=== PATIENT | male | born 1970 | race Caucasian/White ===

== ENCOUNTER → 2018-10-04 10:33 | Outpatient (CLI) | payer OTHER, SELFPAY ==
[2018-01-02 15:03] VITALS: BMI 35.0
[2018-10-04 12:40] LABS: Microalbumin:Creatinine Ratio 334.1 mg/g CRE (<30 mg/g CRE)
[2018-10-04 12:49] LABS: AST(SGOT) 18 U/L (15-37); Alanine Aminotransfer ALT/SGPT 43 U/L (16-61); Albumin, Serum 3.5 g/dL (3.2-5.0); Alkaline Phosphatase 93 U/L (45-117); Anion Gap 10 (5-15); BUN 9 mg/dL (7-18); BUN/Creat Ratio 11.2 RATIO (10-20); Bilirubin, Direct 0.09 mg/dL (0.00-0.30); Calcium,Total 8.8 mg/dL (8.5-10.1); Chloride 100 mmol/L (98-107); Cholesterol 287 mg/dL (200); EST Glomerular Filtration Rate 110 mL/min (>60); Est Glom Filt Rate - Afr Amer 133 mL/min (>60); Globulin 3.7 g/dL (2.2-4.2); Glucose 316 mg/dL (74-106); High Density Lipoprotein 29 mg/dL; Potassium 4.2 mmol/L (3.5-5.1); Protein, Total 7.2 g/dL (6.4-8.2); Sodium Level 133 mmol/L (136-145); Triglycerides 1138 mg/dL
== END ==
PROVIDERS: Family Provider Family Medicine; PCP Family Medicine; Visit Provider Family Medicine
DX: E11.9 Type 2 diabetes mellitus without complications (principal)
CPT/HCPCS: 36415; 80048; 80061; 80076; 82043; 82570

== ENCOUNTER 2019-12-04 20:35 | Emergency (ER) | payer OTHER, SELFPAY ==
[2019-12-04 20:36] VITALS: BP 150/99; PULSE 101; RESP 16; TEMP 36.3; O2SAT 96; BMI 33.0
--- NOTE | 2019-12-04 21:45 | ED.RN ---
patient came to the nurses station and states he is feeling better and no longer wants to see seen
--- NOTE | 2019-12-04 21:47 | ED.DCSUM_ITS ---
- ER Visit Summary Date of Service: 12/04/19 Chief Complaint: Abdominal pain History of Present Illness: The patient is a 49 M [] Physical Examination: [] Test Results: [] Emergency Department Course and Treatment: Patient checked in for abdominal pain. He is brought back to room. I did sign up for the patient but before I could see him patient decided to leave. Patient was not evaluated by myself. Treatment Plan: [] Disposition: [] Impression: [] This note was generated with [employer] technology dictation software. It may contain incorrect words, spelling, and punctuation that were not noted in review of the chart prior to signing ED Disposition - Plan for ED Patient: Disposition: LEFT WITHOUT BEING SEEN Referrals: Tanmay Navarro MD [Primary Care Provider] -
== END 2019-12-04 21:47 ==
PROVIDERS: Emergency Provider Emergency Medicine; PCP Family Medicine
DX: R10.9 Unspecified abdominal pain (principal)

== ENCOUNTER 2020-06-04 20:54 | Emergency (ER) | payer OTHER, SELFPAY ==
[2020-06-04 20:55] VITALS: BP 176/108; PULSE 95; RESP 20; TEMP 36.3; O2SAT 96; BMI 31.8
--- NOTE | 2020-06-04 21:24 | ED.DCSUM_ITS ---
History of Present Illness Chief Complaint: Flank Pain Informant: Patient Onset: Yesterday Context: Gradual Onset Timing: Waxes and wanes Current Severity: Moderate Maximum Severity: Moderate Narrative: Patient present secondary to right flank pain that started yesterday. He points to the right CVA area and around the inferior rib border to the lateral abdomen. He does report an odor to his urine recently. He denies history of kidney stone. He has had prior cholecystectomy. He denies cough or shortness of breath. No fever. - Past Medical History (1) Diabetes 1.5, managed as type 2 Status: Chronic (2) Hyperlipidemia Status: Chronic (3) Hypertension Status: Chronic Past Medical History - Allergies and Home Meds Allergies/Adverse Reactions: Allergies Penicillins Allergy (Verified 12/04/19 20:38) Anaphylaxis Primary Care Physician: Tanmay Navarro MD [Primary Care Provider] - Prior records reviewed: Yes Surgical History: - - Cholecystectomy Smoking Status: Unknown if ever smoked - Family History Maternal Family History: Family History (Last Updated 01/02/18 @ 14:50 by Gilda Jean) Unknown Cancer Diabetes Heart disease Hypertension Family History: Reports: Diabetes Review of Systems General: Denies: Chills, Fever Eyes: Denies: Visual changes - bilaterally ENT: Denies: Bilateral ear pain Cardiovascular: Denies: Chest pain Respiratory: Denies: Dyspnea, Cough Gastrointestinal: Reports: Abdominal pain - Right flank pain. Denies: Nausea, Vomiting, Diarrhea Genitourinary: Denies: Dysuria Musculoskeletal: Reports: Back pain - Right flank Skin: Denies: Rash Neurological: Denies: Headache Hematologic: Denies: Easy bruising, Easy bleeding Allergy: Denies: Uticaria Physical Exam Vital Signs/Narrative: Vital Signs Temp Pulse Resp BP Pulse Ox 06/04/20 20:55 97.3 F L 95 20 H 176/108 H 96 Inital Vital Signs reviewed: Yes General: Well nourished, Well developed Head: Normocephalic ENT: Moist mucous membranes Neck: Supple Cardiovascular: Regular rate, Regular rhythm Respiratory: No distress, CTA bilaterally Abdomen: Soft, Normal bowel sounds, Tender - Tenderness of the right lateral abdominal wall.. Negative for: Guarding, Rebound tenderness Back: CVA tenderness Extremities: Nontender Skin: Normal color Neurological: Alert, Oriented x3 Psychological: Normal affect Diagnostic/Tx/Re-eval Impressions Abdomen/Pelvis CT 06/04/20 21:24 IMPRESSION: Wall thickening in the duodenum with adjacent stranding. This may be due to duodenitis or a duodenal ulcer. No bowel obstruction. Normal appendix. No urinary calculi. No hydronephrosis. Electronically Signed: Rodolfo Borrero, at 22:43 EDT Tel , Service support , 06/04/20 21:24 Abdomen/Pelvis without Cont [CT] Stat Laboratory Results 06/04/20 06/04/20 06/04/20 22:05 22:05 22:17 WBC 11.4 H RBC 5.92 Hgb 17.6 H Hct 52.1 MCV 88.0 MCH 29.7 MCHC 33.8 RDW Std Deviation 39.2 RDW Coeff of Mariano 12.1 Plt Count 191 MPV 12.4 H Immature Gran % (Auto) 1.000 H Neut % (Auto) 64.8 Lymph % (Auto) 24.3 [place] % (Auto) 7.5 Eos % (Auto) 1.9 Baso % (Auto) 0.5 Absolute Neuts (auto) 7.4 Absolute Lymphs (auto) 2.77 Nucleated RBC % 0 Sodium 136 Potassium 4.2 Chloride 104 Carbon Dioxide 27.0 Anion Gap 5 BUN 12 Creatinine 0.77 Estim Creat Clear Calc 126.31 Est GFR (MDRD) Af Amer 139 Est GFR (MDRD) Non-Af 115 BUN/Creatinine Ratio 15.6 Glucose 316 H Calcium 9.4 Urine Color Yellow Urine Clarity Clear Urine pH 7.0 Ur Specific [place] 1.010 Urine Protein 30 H Urine Glucose (UA) 1000 H Urine Ketones Negative Urine Occult Blood Negative Urine Nitrite Negative Urine Bilirubin Negative Urine Urobilinogen Normal Ur Leukocyte Esterase Negative Urine RBC 0 SEEN Urine WBC 0 SEEN Ur Squamous Epith Cells 0 SEEN Urine Bacteria 0 SEEN Urine Mucus 0 SEEN - Medical Decision Making Patient was given Toradol, morphine, Zofran, and IV fluids. On repeat jorge luation he is resting comfortably. Test results are discussed with him. He is not currently on any antacids and will be started on Prilosec. He will be given a dose of Protonix tonight. He has noted Dr. Poon and will follow up with him in the office. Patient also reports feeling a lump in his testicle. No obvious abnormalities were noted on the CT scan. I did recommend he follow-up with PCP for an ultrasound of the testicle. ED Disposition - Plan for ED Patient: Disposition: Home or Assisted Living Diagnosis: Duodenitis Instructions: Duodenitis Prescriptions: Omeprazole [Prilosec] 20 mg PO DAILY #30 cap Transmission Status: Pending to [facility] Referrals: Tanmay Navarro MD [Primary Care Provider] - As soon as possible Rashad Poon MD [STAFF PHYSICIAN] - 1-2 Weeks
--- NOTE | 2020-06-04 21:24 | CT_ITS ---
STUDY: CT ABDOMEN AND PELVIS WITHOUT CONTRAST REASON FOR EXAM: Male, 49 years old. Right flank pain RADIATION DOSAGE (If Supplied By Facility): CTDIvol = ( 16.92 ) mGy, DLP = ( 972.35 ) mGycm TECHNIQUE: Transaxial images were obtained from the dome of the diaphragm to the symphysis pubis without oral contrast, and without intravenous contrast. Sagittal and coronal images were reconstructed. Individualized dose optimization techniques were used for this CT. COMPARISON: 02/27/12 FINDINGS: Evaluation of the abdominal viscera is limited in the absence of intravenous contrast. The visualized lung bases are clear. The visualized portions of the heart and pericardium are within normal limits. The patient is status post cholecystectomy. The liver demonstrates an unremarkable unenhanced appearance. The spleen is normal in size. The pancreas demonstrates an unremarkable unenhanced appearance. The adrenal glands are within normal limits. There are no renal or ureteral stones. There is no hydronephrosis. Normal visualized stomach. There is no bowel obstruction. There is wall thickening in the duodenum with adjacent stranding. This maybe due to duodenitis or duodenal ulcer. The appendix is visualized and appears normal. The aorta is normal in caliber. There is no abdominal or pelvic free air, free fluid, fluid collection or lymphadenopathy. There are no destructive osseous lesions. CT/Abdomen/Pelvis without Cont IMPRESSION: Wall thickening in the duodenum with adjacent stranding. This may be due to duodenitis or a duodenal ulcer. No bowel obstruction. Normal appendix. No urinary calculi. No hydronephrosis. Electronically Signed: Rodolfo Borrero, at 22:43 EDT Tel , Service support ,
[2020-06-04] MEDS: Ketorolac 30 MG/ML Syringe IV (22:08)
[2020-06-04] MEDS: Morphine 4 MG/ML Syringe IV (22:08)
[2020-06-04] MEDS: Ondansetron 4 MG/2 ML Vial IV (22:08)
[2020-06-04] MEDS: 0.9% Normal Saline 1,000 ML 150 ML IV (22:11)
[2020-06-04 22:15] LABS: Absolute Lymphocyte Count 2.77 X10^3/uL (0.83-4.51); Absolute Neutrophil Count 7.4 X10^3/uL (2.0-7.7); Basophil# 0.06 X10^3/uL; Basophil% 0.5 % (0-1); Eosinophil# 0.22 X10^3/uL; Eosinophils% 1.9 % (0-5); Hematocrit 52.1 % (40-54); Hemoglobin 17.6 g/dL (13.0-16.5); Lymphocyte # 2.77 X10^3/ul (4.0); Lymphocyte % 24.3 % (19-41); Mean Corp Hgb Conc 33.8 g/dL (32-36); Mean Corpuscular Hgb 29.7 pg (27.0-32.0); Mean Platelet Vol. 12.4 fl (6.2-12.0); Monocyte# 0.85 X10^3/uL; Monocyte% 7.5 % (0-10); NRBC Flagged by Analyzer 0 % (0-5); Neutrophil # 7.38 X10^3/uL (2.7-7.7); Neutrophil % 64.8 % (47-70); Platelet Count 191 K/mm3 (150-450); RBC Distribution Width CV 12.1 % (11.6-14.6); RBC Distribution Width SD 39.2 fl (35.1-43.9); Red Blood Count 5.92 M/mm3 (4.6-6.2); White Blood Count 11.4 K/mm3 (4.4-11.0)
[2020-06-04 22:24] LABS: Bacteria 0 SEEN /hpf (None Seen); Color, Urine Yellow (Yellow); Glucose, Dipstick 1000 mg/dl (Normal); Ketone-Dipstick Negative (Negative); Leukocyte Esterase-Dipstick Negative /ul (Negative); Mucous, Urine 0 SEEN /hpf (<or=2+); Nitrite-Dipstick Negative (Negative); Occult Blood-Urine Negative /ul (Negative); Protein-Dipstick 30 mg/dl (Negative); Red Blood Cells-Urine 0 SEEN /hpf (0-5); Squamous Epithelial Cells - UA 0 SEEN /hpf (0-5); Urine Bilirubin Dipstick Negative (Negative); Urine Clarity Clear (Clear); Urine Urobilinogen Normal (Normal); White Blood Cells 0 SEEN /hpf (0-5)
[2020-06-04 22:27] LABS: Anion Gap 5 (5-15); BUN 12 mg/dL (7-18); BUN/Creat Ratio 15.6 RATIO (10-20); Calcium,Total 9.4 mg/dL (8.5-10.1); Chloride 104 mmol/L (98-107); Creatinine, Serum 0.77 mg/dL (0.70-1.30); EST Glomerular Filtration Rate 115 mL/min (>60); Est Glom Filt Rate - Afr Amer 139 mL/min (>60); Estimated Creatinine Clearance 126.31 ml/min; Glucose 316 mg/dL (74-106); Potassium 4.2 mmol/L (3.5-5.1); Sodium Level 136 mmol/L (136-145)
[2020-06-04] MEDS: Pantoprazole Sodium 40 MG Tablet PO (23:20)
[2020-06-04 23:24] VITALS: BP 161/81; RESP 18
== END 2020-06-04 23:26 | disposition home or self-care (01) ==
PROVIDERS: Emergency Provider Emergency Medicine; PCP Family Medicine
DX: K29.80 Duodenitis without bleeding (principal); E11.9 Type 2 diabetes mellitus without complications; E78.5 Hyperlipidemia, unspecified; I10 Essential (primary) hypertension; Z82.49 Family history of ischemic heart disease and other diseases of the circulatory system; Z88.0 Allergy status to penicillin; Z90.49 Acquired absence of other specified parts of digestive tract
CPT/HCPCS: 74176; 80048; 81001; 85025; 96361; 96374; 96375; 99283; J7030; A4216; J2405

== ENCOUNTER 2020-06-05 04:05 | Inpatient (IN) | payer OTHER, SELFPAY ==
[2020-06-04 20:55] VITALS: BMI 31.8
[2020-06-05] VITALS (9 sets, daily range): BP systolic 108–187; BP diastolic 88–129; PULSE 59–66; RESP 16–20; TEMP 36.4–36.7; O2SAT 95–100; BMI 33.5
--- NOTE | 2020-06-05 04:30 | ED.DCSUM_ITS ---
History of Present Illness Chief Complaint: Abd Pain Informant: Patient Narrative: Patient is a 49-year-old male with a past medical history of diabetes who presents to the emergency department for right sided flank pain. This has been present since yesterday evening. He was seen in the emergency department a few hours earlier for the same complaint. He had good relief of his symptoms here in the emergency department when he went home his symptoms returned. He currently rates the pain as a 10 out of 10. He describes as a sharp sensation. No known aggravating or relieving factors. He tried to take Excedrin since discharge and this did not help. No associated nausea/vomiting. No change in bowel habits including diarrhea, constipation or blood in stool. He states that his urine has had a foul smell to it and has been very foamy. Denies any dysuria or hematuria. He was diagnosed with a possible duodenal ulcer. Was given a dose of Protonix. He was sent home with a prescription for Pepcid. Basic lab work was obtained along with CT scan of the abdomen/pelvis. His urine did not show any evidence of infection. He has never had this pain before in the past. Past Medical History - Allergies and Home Meds Allergies/Adverse Reactions: Allergies Penicillins Allergy (Verified 06/05/20 04:08) Anaphylaxis Prior records reviewed: Yes Past Medical History: - - Diabetes mellitus Surgical History: - - Cholecystectomy Smoking Status: Current every day smoker - Family History Maternal Family History: Family History (Last Updated 01/02/18 @ 14:50 by Gilda Jean) Unknown Cancer Diabetes Heart disease Hypertension Family History: Reports: Diabetes Review of Systems General: Denies: Chills, Fever, Sweats Eyes: Denies: Visual changes - bilaterally, Diplopia ENT: Denies: Rhinorrhea, Sore throat Cardiovascular: Denies: Chest pain, Palpitations Respiratory: Denies: Dyspnea, Cough, Dyspnea on exertion Gastrointestinal: Reports: Abdominal pain. Denies: Nausea, Vomiting, Diarrhea, Melena, Hematochezia Genitourinary: Denies: Dysuria, Hematuria, Frequency Musculoskeletal: Denies: Back pain, Extremity Pain Skin: Denies: Rash, Wounds Neurological: Denies: Headache, Weakness, Numbness Physical Exam Vital Signs/Narrative: Vital Signs Temp Pulse Resp BP Pulse Ox 06/05/20 04:06 97.9 F 66 20 H 187/129 H 97 Inital Vital Signs reviewed: Yes General: Well nourished, Well developed, No Acute Distress Head: Normocephalic, Atraumatic Eyes: Perrl, EOMI ENT: Moist mucous membranes, No rhinorrhea Neck: Supple, Nontender Cardiovascular: Regular rate, Regular rhythm, No murmurs Respiratory: No distress, CTA bilaterally, Chest nontender Abdomen: Soft, Nondistended, Normal bowel sounds, Tender - Right upper quadrant/right flank. He also has tenderness in the epigastric region. No overlying skin changes., - - No pain over McBurney's point.. Negative for: Guarding, Rebound tenderness Back: Nontender, Normal Inspection Extremities: Nontender, No edema. Negative for: Edema, Calf Tenderness Skin: Normal color, No rash Neurological: Alert, Oriented x3, Cranial nerves II-XII grossly intact, Normal Strength, Normal Sensation Psychological: Normal affect, Normal Mood Diagnostic/Tx/Re-eval - Medical Decision Making Patient presents to emerge department for right-sided flank pain. He was seen earlier with a full work-up at that time. He was diagnosed with a duodenal ulcer as he had some duodenal wall thickening. We will give a GI cocktail to see if this gives him some relief. He has no peritoneal signs on physical exam. He has hypertension on vitals upon arrival. He is afebrile. Will obtain liver function panel as well as lipase. I do not feel patient needs any repeat imaging at this time as he just had a CT scan a few hours prior. Symptoms do not seem worse but they just returned back to what they were previously. Lipase was elevated over 4000. Upon review his medical records he has had very elevated triglycerides in the past. He denies alcohol use again. CT scan from prior did not show any evidence of obstructing stone. Will bring him into the hospital for further evaluation and management. He is started on IV fluids and given a dose of morphine. This was all made apparent to the patient. He understands and is agreeable with this plan. ED Disposition - Plan for ED Patient: Disposition: Acute Care Hospital [facility] Diagnosis: Pancreatitis, Hyperglycemia, Abdominal pain
[2020-06-05] MEDS: Mag Hydrox/Al Hydrox/Simeth 30 ML UDC PO (04:43)
[2020-06-05 04:59] LABS: ALB/GLOB Ratio 0.9 RATIO (0.9-2.4); AST(SGOT) 11 U/L (15-37); Alanine Aminotransfer ALT/SGPT 25 U/L (16-61); Albumin, Serum 3.1 g/dL (3.2-5.0); Alkaline Phosphatase 84 U/L (45-117); Anion Gap 6 (5-15); BUN 14 mg/dL (7-18); BUN/Creat Ratio 14.8 RATIO (10-20); Calcium,Total 8.8 mg/dL (8.5-10.1); Chloride 100 mmol/L (98-107); Creatinine, Serum 0.95 mg/dL (0.70-1.30); EST Glomerular Filtration Rate 90 mL/min (>60); Est Glom Filt Rate - Afr Amer 109 mL/min (>60); Estimated Creatinine Clearance 99.25 ml/min; Globulin 3.5 g/dL (2.2-4.2); Glucose 414 mg/dL (74-106); Lipase 4447 U/L (73-393); Potassium 4.3 mmol/L (3.5-5.1); Protein, Total 6.6 g/dL (6.4-8.2); Sodium Level 135 mmol/L (136-145)
--- NOTE | 2020-06-05 05:04 | PCM.HP.STD ---
Problem List (1) Pancreatitis Status: Acute (2) Hyperglycemia Status: Acute (3) Abdominal pain Status: Acute (4) Hyperlipidemia Status: Chronic (5) Hypertension Status: Chronic (6) Diabetes 1.5, managed as type 2 Status: Chronic History of Present Illness Date of Admission: 06/05/20 Chief Complaint: Abdominal pain The patient is a 49 year old M with a significant history of hypertension; diabetes mellitus who presents emergency department with excruciating right flank pain. In the last 24 hours patient came to emergency department 2 times. This is his second visits. On the second visit patient's CT scan showed duodenal inflammation consistent with either a pancreatitis or peptic ulcer disease. Patient was subsequent discharged on Prilosec. When patient went home because her pain returned I came back to emergency department. His pain worsens with movement. He denies any ameliorating factors to the pain. However, pain medication that he received at the emergency department helped with his pain. His pain is nonradiating. He describes his pain as dull pressure. He denies any nausea or vomiting. His lipase done at the second visit (this visit) showed an amount of 4, 447. Past Medical History Past Medical History (Chronic Problems): Chronic Problems (Last Reviewed 06/05/20 @ 06:[address] Kyree Mclean MD) Hyperlipidemia (Chronic) Hypertension (Chronic) Diabetes 1.5, managed as type 2 (Chronic) Medical History: Medical History (Last Reviewed 06/05/20 @ 06:[address] Kyree Mclean MD) Bone fracture T14.8XXA Diabetes type 2, uncontrolled E11.65 Dx : 2014 Last exacerbation : DKA : never Hypoglycemic episode : never ER visit : never HTN (hypertension) I10 Allergies Penicillins Allergy (Verified 06/05/20 04:08) Anaphylaxis Home Medications: Ambulatory Orders Medication Instructions Recorded Insulin Detemir [Levemir FlexPen] 48 units SC QHS 01/29/16 metFORMIN HCl [Glucophage] 1,000 mg PO DAILY 01/29/16 Lisinopril [Zestril] 20 mg PO DAILY 06/04/20 Omeprazole [Prilosec] 20 mg PO DAILY #30 cap 06/04/20 Surgical History: Surgical History (Last Reviewed 06/05/20 @ 06:[address] Kyree Mclean MD) H/O foot surgery Z98.890 H/O shoulder surgery Z98.890 Hx of cholecystectomy Z98.890, Z90.49 Surgical History: herniorrhaphy, - - Cholecystectomy Psychiatric History: No pertinent psych hx Smoking Status: Current every day smoker Tobacco Use: Cigarettes - *Family History Maternal Family History: Family History (Last Reviewed 06/05/20 @ 06:[address] Kyree Mclean MD) Unknown Cancer Diabetes Heart disease Hypertension History Items: Diabetes Review of Systems Constitutional: Denies: Chills, Fever, Weight Change HEENT: Denies: Head Aches, Sinus Congestion, Sinus Drainage Cardiovascular: Denies: Chest Pain, Palpitations Respiratory: Denies: Cough, Shortness of breath at rest, Sputum production Gastrointestinal: Reports: Abdominal Pain. Denies: Nausea, Vomiting Genitourinary: Denies: Dysuria Musculoskeletal: Denies: Joint Pain, Joint Tenderness Skin: Denies: Rash, Wounds Neurological: Denies: Numbness, Tingling, Focal weakness Psychiatric: Denies: Anxiety, Depression, Homicidal Ideations, Suicidal Ideations Hematologic/ Lymphatic: Denies: Easy Bruising, Easy Bleeding VTE Information - Inpt Only VTE Present on Admission: No VTE Mechan Device Prophylaxis: None VTE Pharm Prophylaxis ordered?: Yes Patient Problems: Active and Suspected Problems (Last Reviewed 06/05/20 @ 06:[address] Kyree Mclean MD) Pancreatitis (Acute) Hyperglycemia (Acute) Abdominal pain (Acute) - Physical Exam Vitals/I&O's: Vital Signs Temp Pulse Resp BP Pulse Ox 97.9 F 66 20 H 187/129 H 97 06/05/20 04:06 06/05/20 04:06 06/05/20 04:06 06/05/20 04:06 06/05/20 04:06 Oxygen Delivery Method Room Air Weight: 106.1 kg Body Mass Index (BMI) 33.5 Finger Stick Blood Glucose 212 General: Alert, Oriented x3, Cooperative HEENT: Atraumatic, PERRLA, EOMI, Normocephalic Neck: Supple, No JVD, Negative Carotid Bruits Lungs: Clear to auscultation, Normal air movement Cardiovascular: Regular rate, Normal S1, Normal S2, No murmurs Abdomen: Bowel Sounds Present, Soft, Non Tender, - - Right testicular mass, tender. Extremities: No edema, Capillary Refill Less than 3 Seconds Skin: No rashes, No breakdown Musculoskeletal: No Tenderness to Palpation of Joints or Extremities Neurological: Cranial nerves II-XII grossly intact Psych/Mental Status: Normal Affect, Appropriate Laboratory Results 06/05/20 04:35: Sodium 135 L, Potassium 4.3, Chloride 100, Carbon Dioxide 29.0, Anion Gap 6, BUN 14, Creatinine 0.95, Estim Creat Clear Calc 99.25, Est GFR (MDRD) Af Amer 109, Est GFR (MDRD) Non-Af 90, BUN/Creatinine Ratio 14.8, Glucose 414 H, Calcium 8.8, Total Bilirubin 0.20, AST 11 L, ALT 25, Alkaline Phosphatase 84, Total Protein 6.6, Albumin 3.1 L, Globulin 3.5, Albumin/Globulin Ratio 0.9, Lipase 4447 H Current Medications Sodium Chloride () 1,000 mls @ 999 mls/hr IV .Q1H1M ONE Stop: 06/05/20 06:02 Assessment/Plan All Active Problems (Last Reviewed 06/05/20 @ 06:[address] Kyree Mclean MD) Pancreatitis (Acute) Hyperglycemia (Acute) Abdominal pain (Acute) The patient is a 49 year old M with a significant history of hypertension; diabetes mellitus who presents to the emergency department with excruciating right flank pain; moderately tender right flank; very tender epigastric area and with CT of abdomen and pelvis finding of maral inflammation.. Acute pancreatitis Received normal saline bolus at emergency department. Will start patient on lactated Ringer's infusion. Patient denies nausea or vomiting so will start patient on a diet. Calorie controlled diet ordered. Etiology of pancreatitis is unclear as patient has his gallbladder removed. And he hardly drinks. About 4 days prior to his representation he had about 3-4 bottles of beer. I do not anticipate that his last drink contributed to his pancreatitis. His calcium is not elevated. His triglycerides is elevated and that could be contributing to his pancreatitis. Diabetes mellitus Blood glucose on presentation was severely elevated. Home basal insulin continued Accu-Chek q. ACH with correction scale insulin ordered. Hold home metformin in the hospital setting. Hypertriglyceridemia Start patient on fenofibrate. Titrate fenofibrate as necessary. Duodenitis/duodenal ulcer Although patient symptoms could only be from pancreatitis he has severe epigastric tenderness and moderate right flank tenderness. His right flank tenderness could be referred from his pancreatitis. However with a CT scan of abdomen and pelvis findings of duodenal inflammation will order Protonix. Of note on patient first emergency department visit Prilosec outpatient was prescribed. Testicular mass Patient reports of a soreness and a mass in his right testicles that has been present for a couple of months.. We will get ultrasound of testicles. Hypertension On presentation blood pressure was not within goal Lisinopril continued Trend blood pressure and adjust blood pressure medications. DVT prophylaxis Subcutaneous Lovenox. Inpatient E&M: 79921 Init Hosp L3
[2020-06-05] MEDS: Morphine 4 MG/ML Syringe IV (05:22)
[2020-06-05] MEDS: 0.9% Normal Saline 1,000 ML 999 ML IV (05:24)
[2020-06-05 05:28] LABS: Cholesterol 136 mg/dL (200); High Density Lipoprotein 24 mg/dL; Triglycerides 544 mg/dL
--- NOTE | 2020-06-05 06:21 | US_ITS ---
STUDY: SCROTUM ULTRASOUND REASON FOR EXAM: Male, 49 years old. Right testicular mass TECHNIQUE: Ultrasound evaluation of the scrotum was performed with color Doppler and static vang-scale imaging. COMPARISON: None. FINDINGS: RIGHT TESTICLE INTRATESTICULAR: There is a normal size of the right testicle. The right testicle measures 5.3 x 3.1 x 2.9 cm. There is a homogenous echotexture. There is normal arterial and normal venous vascularity. There is no demonstrated right testicular mass or cyst. EXTRATESTICULAR: The epididymis is normal in size. The epididymis head measures 1.6 x 1.2 cm. There is normal vascularity of the epididymis. There is a 2.9 x 0.9 cm right epididymal cyst. There is a small hydrocele. There is no demonstrated varicocele. There is no demonstrated extratesticular mass or cyst. LEFT TESTICLE INTRATESTICULAR: There is a normal size of the left testicle. The left testicle measures 4.1 x 3.6 x 2.7 cm. There is a homogenous echotexture. There is normal arterial and normal venous vascularity. There is no demonstrated left testicular mass or cyst. EXTRATESTICULAR: The epididymis is normal in size. The epididymis head measures 1.3 x 0.9 cm. There is normal vascularity of the epididymis. There is no demonstrated epididymal cystic structure. There is no demonstrated hydrocele. There is no demonstrated varicocele. There is no demonstrated extratesticular mass or cyst. US/Testicular with Arterial Flow IMPRESSION: Normal bilateral testicles with normal DOPPLER flow. 2.9 x 0.9 cm right epididymal cyst which likely corresponds to the patient''s palpable mass. Electronically Signed: Rodolfo Borrero, at 14:03 EDT Tel , Service support ,
[2020-06-05] MEDS: Acetaminophen 325 MG Tablet 650 MG PO (06:45)
[2020-06-05] MEDS: hydrALAZINE 20 MG/ML Vial 10 MG IV (06:46)
[2020-06-05] MEDS: 0.9% Saline Lock 10 ML Syringe IV (06:46)
[2020-06-05] MEDS: Insulin Lispro 100 UNIT/ML INSULN.PEN SC ×4 (06:56→21:11)
[2020-06-05] MEDS: Lactated Ringers 1,000 ML 250 ML IV ×4 (06:57→21:02)
[2020-06-05 07:06] LABS: Bedside Glucose 327 mg/dL (70-110)
[2020-06-05] MEDS: Morphine 2 MG/ML Syringe IV ×2 (08:42→12:46)
[2020-06-05] MEDS: Enoxaparin 40 MG/0.4 ML Syringe SC (08:47)
--- NOTE | 2020-06-05 11:15 | CASEMGMT ---
KARLOS YANEZ Face to Face with patient for initial transition planning/care coordination assessment. KARLOS YANEZ introduced self and role at [facility]. Patient lying in bed, alert and oriented. Patient willing to participate in assessment and is able to answer all questions appropriately. Care providers, pharmacy, and demographics verified. Patient wishes to discharge home, denies need for home health at this time. Patient states he has no further needs or concerns at this time. CM to follow for discharge planning needs that may arise. PCP: Ramon Specialists: none, would like to get established with an records section supervisor, educated patient on Dr. Freeman Preferred Pharmacy: [facility] Insurance: [employer] Prescription Benefit: yes Living Will/HPOA: none LNOK: daughter Living Arrangements: Patient lives alone in a 2 story home, independent and able to ambulate stairs. Transportation: self/daughter DME/HHC: Patient states he has glucometer and testing supplies but does not test his sugar regularly. KARLOS YANEZ encouraged patient to check and track his blood sugars. Patient smokes 1 PPD Disposition Plan: Patient to discharge home with family support and follow-up plans in place. Lesly LEWIS, RN, CM
--- NOTE | 2020-06-05 11:16 | PCM.PN.HOSP ---
Patient Problems: Active and Suspected Problems (Last Reviewed 06/05/20 @ 06:[address] Kyree Mclean MD) Pancreatitis (Acute) Hyperglycemia (Acute) Abdominal pain (Acute) Reason for Visit: pancreatitis Subjective: Still with abdominal pain, overall better. Vitals/I&O's: Vital Signs Temp Pulse Resp BP Pulse Ox 36.4 C L 62 18 157/90 H 100 06/05/20 08:37 06/05/20 08:37 06/05/20 08:37 06/05/20 08:37 06/05/20 08:37 Oxygen Delivery Method Room Air Weight: 105.9 kg Body Mass Index (BMI) 33.5 Finger Stick Blood Glucose 212 Intake and Output for Last 24 Hours 06/03/20 06/04/20 06/05/20 23:59 23:59 23:59 Intake Total 1000 / 1000 Balance 1000 / 1000 General: Alert, No apparent distress HEENT: Atraumatic, Normocephalic Oral: Moist Mucosa, No Gingival or Mucosal Lesions/ Ulcerations Neck: No Nodes, Thyroid Normal Size and Texture Lungs: Clear to auscultation, Normal air movement, No rhonchi, No wheeze, No rales Cardiovascular: Regular rate, Regular Rhythm, Normal S1, Normal S2, No murmurs Abdomen: Bowel Sounds Present, Soft, Non-Distended, Tender - in epigastrum Extremities: No edema, No Calf Tenderness Skin: No rashes, No breakdown Musculoskeletal: No Tenderness to Palpation of Joints or Extremities, No Muscle Wasting Psych/Mental Status: Normal Affect, Appropriate Laboratory Results 06/05/20 04:35: Sodium 135 L, Potassium 4.3, Chloride 100, Carbon Dioxide 29.0, Anion Gap 6, BUN 14, Creatinine 0.95, Estim Creat Clear Calc 99.25, Est GFR (MDRD) Af Amer 109, Est GFR (MDRD) Non-Af 90, BUN/Creatinine Ratio 14.8, Glucose 414 H, Calcium 8.8, Total Bilirubin 0.20, AST 11 L, ALT 25, Alkaline Phosphatase 84, Total Protein 6.6, Albumin 3.1 L, Globulin 3.5, Albumin/Globulin Ratio 0.9, Lipase 4447 H 06/05/20 04:35: Triglycerides 544 H, Cholesterol 136, LDL Cholesterol TNP, VLDL Cholesterol TNP, HDL Cholesterol 24 L 06/05/20 06:48: POC Glucose 327 H Current Medications Acetaminophen (Tylenol) 650 mg PO Q6H PRN PRN PRN Reason: Pain Score 1-10/Temp > 100.7 F Last Admin: 06/05/20 06:45 Dose: 650 mg Documented by: Dextrose (D50w Syringe) 0 gm IV X1 PRN; Protocol PRN Reason: Hypoglycemia Enoxaparin Sodium (Lovenox) 40 mg SC DAILY [facility] Last Admin: 06/05/20 08:47 Dose: 40 mg Documented by: Fenofibrate (Tricor) 48 mg PO DAILY [facility] Last Admin: 06/05/20 08:40 Dose: Not Given Documented by: Glucagon () 1 mg IM .X1 PRN PRN Reason: Hypoglycemia Hydralazine HCl (Apresoline Iv) 10 mg IV Q4H PRN PRN PRN Reason: SBP > 160 Last Admin: 06/05/20 06:46 Dose: 10 mg Documented by: Lactated Ringer's () 1,000 mls @ 250 mls/hr IV .Q4H [facility] Last Admin: 06/05/20 06:57 Dose: 250 mls/hr Documented by: Sodium Chloride () 250 mls @ 15 mls/hr IV .[id number] PRN PRN Reason: Saline Flush Insulin Glargine (Lantus (Bkc)) 34 units SC QHS [facility] Insulin Human Lispro (Humalog Kwikpen (Bkc)) 0 unit SC ACHS [facility]; Protocol Last Admin: 06/05/20 06:56 Dose: 8 units Documented by: Lisinopril (Zestril) 20 mg PO DAILY [facility] Last Admin: 06/05/20 08:40 Dose: Not Given Documented by: Melatonin (Melatonin) 3 mg PO QHS PRN PRN PRN Reason: INSOMNIA Morphine Sulfate () 2 mg IV Q3H PRN PRN PRN Reason: Pain Score 6-10/10 Last Admin: 06/05/20 08:42 Dose: 2 mg Documented by: Ondansetron HCl (Zofran) 4 mg IV Q8H PRN PRN PRN Reason: NAUSEA/VOMITING Pantoprazole Sodium (Protonix) 40 mg PO DAILY [facility] Last Admin: 06/05/20 08:40 Dose: Not Given Documented by: Senna/Docusate Sodium (Senokot-S, Romana-Colace) 2 tablet PO BID PRN PRN PRN Reason: Constipation Sodium Chloride () 10 - 40 ml IV UD PRN PRN Reason: SALINE FLUSH Last Admin: 06/05/20 06:46 Dose: 10 ml Documented by: STROKE Vital Signs/Narrative: Vital Signs Temp Pulse Resp BP Pulse Ox 06/05/20 08:37 36.4 C L 62 18 157/90 H 100 Medical Necessity - Tobacco Use Smoking Status: Current every day smoker Tobacco Use: Cigarettes Assessment/Plan All Active Problems (Last Reviewed 06/05/20 @ 06:[address] Kyree Mclean MD) Pancreatitis (Acute) Hyperglycemia (Acute) Abdominal pain (Acute) 1. acute pancreatitis ongoing etiology unclear at this time. status cholecystectomy. rare alcohol consumption (though did have a few beers several days prior). TGs elevated, but I am not sure if high enough to cause pancreatitis. Initiated on fenofibrate. continue supportive mgmt with IVF, pain control, clear liquid diet 2. duodenitis unclear if due to proximity of pancreatis on PPI 3. DM2 uncontrolled continue basal insulin and SSI check A1c 4. Testicular mass US ordered given age, unlikely to be primary CA 5. VTE prophylaxis: LMWH Procedures: Other Procedure - See Report - Non billable rounding as patient admitted after midnight.
--- NOTE | 2020-06-05 12:24 | NURSING ---
per electrical maintenance supervisor, pt visitor is changing from daughter, Chance, to mother Cristine. they understand that they will not be able to change again and that mother will be the only visitor allowed. updated primary RN.
[2020-06-05 12:50] LABS: Bedside Glucose 250 mg/dL (70-110)
--- NOTE | 2020-06-05 14:02 | ED.RN ---
Spoke with daughter on the phone. She was upset and stated that her father needed her grandmother to be with him instead of her. She was listed as his contact and visitor. Both daughter and mother were crying. Daughter was advised that we would allow the change but once they did the change it was done. She would not be allowed to switch again during this visit. Daughter agreed. They also spoke with Major Mariee about this issue.
[2020-06-05 17:00] LABS: Bedside Glucose 217 mg/dL (70-110)
[2020-06-05 22:50] LABS: Bedside Glucose 180 mg/dL (70-110)
[2020-06-06] MEDS: Lactated Ringers 1,000 ML 250 ML IV ×3 (00:40→08:32)
[2020-06-06 03:30] VITALS: BP 155/84; PULSE 55; RESP 16; TEMP 36.5; O2SAT 98
[2020-06-06 05:25] LABS: Absolute Lymphocyte Count 2.95 X10^3/uL (0.83-4.51); Absolute Neutrophil Count 4.8 X10^3/uL (2.0-7.7); Basophil# 0.04 X10^3/uL; Basophil% 0.5 % (0-1); Eosinophil# 0.18 X10^3/uL; Eosinophils% 2.1 % (0-5); Hematocrit 46.8 % (40-54); Hemoglobin 15.6 g/dL (13.0-16.5); Lymphocyte # 2.95 X10^3/ul (4.0); Lymphocyte % 34.1 % (19-41); Mean Corp Hgb Conc 33.3 g/dL (32-36); Mean Corpuscular Hgb 29.7 pg (27.0-32.0); Mean Corpuscular Volume 89.1 fL (80-94); Mean Platelet Vol. 12.4 fl (6.2-12.0); Monocyte# 0.59 X10^3/uL; Monocyte% 6.8 % (0-10); NRBC Flagged by Analyzer 0 % (0-5); Neutrophil # 4.83 X10^3/uL (2.7-7.7); Neutrophil % 55.7 % (47-70); Platelet Count 175 K/mm3 (150-450); RBC Distribution Width CV 12.1 % (11.6-14.6); RBC Distribution Width SD 39.8 fl (35.1-43.9); Red Blood Count 5.25 M/mm3 (4.6-6.2); White Blood Count 8.7 K/mm3 (4.4-11.0)
[2020-06-06 05:45] LABS: Anion Gap 3 (5-15); BUN 6 mg/dL (7-18); BUN/Creat Ratio 13.3 RATIO (10-20); Calcium,Total 8.2 mg/dL (8.5-10.1); Chloride 112 mmol/L (98-107); Creatinine, Serum 0.45 mg/dL (0.70-1.30); EST Glomerular Filtration Rate 213 mL/min (>60); Est Glom Filt Rate - Afr Amer 258 mL/min (>60); Estimated Creatinine Clearance 209.54 ml/min; Glucose 146 mg/dL (74-106); Lipase 652 U/L (73-393); Potassium 3.7 mmol/L (3.5-5.1); Sodium Level 140 mmol/L (136-145)
[2020-06-06] MEDS: Insulin Lispro 100 UNIT/ML INSULN.PEN SC ×2 (06:57→11:54)
[2020-06-06 07:01] LABS: Bedside Glucose 157 mg/dL (70-110)
[2020-06-06 07:42] VITALS: O2SAT 97
[2020-06-06 08:11] LABS: Hemoglobin A1c 11.5 % (3.8-5.6)
[2020-06-06 08:38] VITALS: BP 154/110; PULSE 60; RESP 18; TEMP 36.6; O2SAT 99
--- NOTE | 2020-06-06 08:52 | PN_ITS ---
Patient Problems: Active and Suspected Problems (Last Reviewed 06/05/20 @ 06:[address] Kyree Mclean MD) Pancreatitis (Acute) Hyperglycemia (Acute) Abdominal pain (Acute) Reason for Visit: pancreatitis Subjective: feeling better. no abdominal pain. tolerating clears. Vitals/I&O's: Vital Signs Temp Pulse Resp BP Pulse Ox 36.6 C 60 18 154/110 H 99 06/06/20 08:38 06/06/20 08:38 06/06/20 08:38 06/06/20 08:38 06/06/20 08:38 Oxygen Delivery Method Room Air Weight: 105.9 kg Body Mass Index (BMI) 33.5 Finger Stick Blood Glucose 212 Intake and Output for Last 24 Hours 06/04/20 06/05/20 06/06/20 23:59 23:59 23:59 Intake Total 4000 / 5100 4470.83 / 4470.83 Balance 4000 / 5100 4470.83 / 4470.83 General: Alert, No apparent distress HEENT: Atraumatic, Normocephalic Neck: No Nodes, Thyroid Normal Size and Texture Lungs: Clear to auscultation, Normal air movement, No rhonchi, No wheeze, No rales Cardiovascular: Regular rate, Regular Rhythm, Normal S1, Normal S2, No murmurs Abdomen: Bowel Sounds Present, Soft, Non Tender, Non-Distended, No Hepato- splenomegaly Extremities: No edema, No Calf Tenderness Laboratory Results 06/05/20 12:36: POC Glucose 250 H 06/05/20 16:54: POC Glucose 217 H 06/05/20 21:07: POC Glucose 180 H 06/06/20 05:12: Sodium 140, Potassium 3.7, Chloride 112 H, Carbon Dioxide 25.0, Anion Gap 3 L, BUN 6 L, Creatinine 0.45 L, Estim Creat Clear Calc 209.54, Est GFR (MDRD) Af Amer 258, Est GFR (MDRD) Non-Af 213, BUN/Creatinine Ratio 13.3, Glucose 146 H, Calcium 8.2 L, Lipase 652 H 06/06/20 05:12: WBC 8.7, RBC 5.25, Hgb 15.6, Hct 46.8, MCV 89.1, MCH 29.7, MCHC 33.3, RDW Std Deviation 39.8, RDW Coeff of Mariano 12.1, Plt Count 175, MPV 12.4 H, Immature Gran % (Auto) 0.800, Neut % (Auto) 55.7, Lymph % (Auto) 34.1, [place] % (Auto) 6.8, Eos % (Auto) 2.1, Baso % (Auto) 0.5, Absolute Neuts (auto) 4.8, Ab solute Lymphs (auto) 2.95, Nucleated RBC % 0 06/06/20 05:12: Hemoglobin A1c 11.5 H 06/06/20 06:55: POC Glucose 157 H Current Medications Acetaminophen (Tylenol) 650 mg PO Q6H PRN PRN PRN Reason: Pain Score 1-10/Temp > 100.7 F Last Admin: 06/05/20 06:45 Dose: 650 mg Documented by: Dextrose (D50w Syringe) 0 gm IV X1 PRN; Protocol PRN Reason: Hypoglycemia Enoxaparin Sodium (Lovenox) 40 mg SC DAILY [facility] Last Admin: 06/05/20 08:47 Dose: 40 mg Documented by: Fenofibrate (Tricor) 48 mg PO DAILY [facility] Last Admin: 06/05/20 08:40 Dose: Not Given Documented by: Glucagon () 1 mg IM .X1 PRN PRN Reason: Hypoglycemia Hydralazine HCl (Apresoline Iv) 10 mg IV Q4H PRN PRN PRN Reason: SBP > 160 Last Admin: 06/05/20 06:46 Dose: 10 mg Documented by: Lactated Ringer's () 1,000 mls @ 250 mls/hr IV .Q4H [facility] Last Admin: 06/06/20 08:32 Dose: 250 mls/hr Documented by: Sodium Chloride () 250 mls @ 15 mls/hr IV .[id number] PRN PRN Reason: Saline Flush Insulin Glargine (Lantus (Bkc)) 34 units SC QHS [facility] Last Admin: 06/05/20 23:33 Dose: Not Given Documented by: Insulin Human Lispro (Humalog Kwikpen (Bkc)) 0 unit SC ACHS [facility]; Protocol Last Admin: 06/06/20 06:57 Dose: 2 units Documented by: Lisinopril (Zestril) 20 mg PO DAILY [facility] Last Admin: 06/05/20 08:40 Dose: Not Given Documented by: Melatonin (Melatonin) 3 mg PO QHS PRN PRN PRN Reason: INSOMNIA Morphine Sulfate () 2 mg IV Q3H PRN PRN PRN Reason: Pain Score 6-10/10 Last Admin: 06/05/20 12:46 Dose: 2 mg Documented by: Ondansetron HCl (Zofran) 4 mg IV Q8H PRN PRN PRN Reason: NAUSEA/VOMITING Pantoprazole Sodium (Protonix) 40 mg PO DAILY [facility] Last Admin: 06/05/20 08:40 Dose: Not Given Documented by: Senna/Docusate Sodium (Senokot-S, Romana-Colace) 2 tablet PO BID PRN PRN PRN Reason: Constipation Sodium Chloride () 10 - 40 ml IV UD PRN PRN Reason: SALINE FLUSH Last Admin: 06/05/20 06:46 Dose: 10 ml Documented by: STROKE Vital Signs/Narrative: Vital Signs Temp Pulse Resp BP Pulse Ox 06/06/20 08:38 36.6 C 60 18 154/110 H 99 06/06/20 07:42 97 Medical Necessity - Tobacco Use Smoking Status: Current every day smoker Tobacco Use: Cigarettes Assessment/Plan All Active Problems (Last Reviewed 06/05/20 @ 06:[address] Kyree Mclean MD) Pancreatitis (Acute) Hyperglycemia (Acute) Abdominal pain (Acute) 1. acute pancreatitis * improved clinically. Lipase down to 652 * etiology unclear at this time. status cholecystectomy. rare alcohol consumption (though did have a few beers several days prior). * TGs elevated, but I am not sure if high enough to cause pancreatitis. Initiated on fenofibrate. * continue supportive mgmt with IVF, pain control, clear liquid diet 2. duodenitis * unclear if due to proximity of pancreatis * on PPI 3. DM2 uncontrolled * continue basal insulin and SSI * A1c 11.5 * fair control at this time. 4. Testicular mass * epidydmal cyst * follow up with PRN 5. VTE prophylaxis: LMWH Inpatient E&M: 49147 Subs Hosp L2
[2020-06-06] MEDS: Enoxaparin 40 MG/0.4 ML Syringe SC (10:07)
[2020-06-06] MEDS: Fenofibrate 48 MG Tablet PO (10:08)
[2020-06-06] MEDS: Pantoprazole Sodium 40 MG Tablet PO (10:08)
[2020-06-06] MEDS: Lisinopril 20 MG Tablet PO (10:08)
[2020-06-06 12:15] LABS: Bedside Glucose 232 mg/dL (70-110)
--- NOTE | 2020-06-06 12:29 | DCINST_ITS ---
- Discharge Diagnoses Current Active Problems: Current Active and Chronic Problems (Last Reviewed 06/05/20 @ 06:[address] Kyree Mclean MD) Pancreatitis (Acute) Hyperglycemia (Acute) Abdominal pain (Acute) You will use the following diet at home:: Calorie/Carbohydrate Controlled (specify 1200, 1400, etc) - 1800 kcal/day, Other - no alcohol Call your doctor if you observe: - - worsening abdominal pain Allergies/Adverse Reactions: Allergies Penicillins Allergy (Verified 06/05/20 04:08) Anaphylaxis Medications to take at Discharge Insulin Detemir [Levemir FlexPen] 48 units SC QHS 01/29/16 metFORMIN HCl [Glucophage] 1,000 mg PO DAILY 01/29/16 Lisinopril [Zestril] 20 mg PO DAILY 06/04/20 Omeprazole [Prilosec] 20 mg PO DAILY #30 cap 06/04/20 Atorvastatin Calcium 20 mg PO DAILY 06/05/20 Fenofibrate [Tricor] 48 mg PO DAILY #30 tab 06/06/20 The following prescriptions were given: Fenofibrate [Tricor] 48 mg PO DAILY #30 tab Transmission Status: Pending to [facility] #30 Primary Care Physician: Tanmay Navarro MD [Primary Care Provider] - Within 2 Weeks Test Results: Test results from this visit will be discussed in further detail at your follow- up appointment, if applicable. Proposed Discharge Date: 06/06/20
--- NOTE | 2020-06-06 12:30 | PCM.DC.SUM ---
Discharge Date and Diagnosis - Problem List Patient Problems: Active and Suspected Problems (Last Reviewed 06/05/20 @ 06:[address] Kyree Mclean MD) Pancreatitis (Acute) Hyperglycemia (Acute) Abdominal pain (Acute) Date of Admission: 06/05/20 Date of Discharge: 06/06/20 - Primary Discharge Diagnosis Acute Problems: Active Problems (Last Reviewed 06/05/20 @ 06:[address] Kyree Mclean MD) Pancreatitis (Acute) Hyperglycemia (Acute) Abdominal pain (Acute) - Secondary Discharge Diagnosis Chronic Problems: Chronic Problems (Last Reviewed 06/05/20 @ 06:[address] Kyree Mclean MD) Hyperlipidemia (Chronic) Hypertension (Chronic) Diabetes 1.5, managed as type 2 (Chronic) Hospital Course and Treatment Imaging Results: Clinical Impression(s) from Imaging Studies Testicular Ultrasound 06/05/20 06:21 IMPRESSION: Normal bilateral testicles with normal DOPPLER flow. 2.9 x 0.9 cm right epididymal cyst which likely corresponds to the patient''s palpable mass. Electronically Signed: Rodolfo Borrero, at 14:03 EDT Tel , Service support , Operations: None Procedures: None Summary of Care Provided: The patient is a 49 year old M presents with 1 day of abdominal pain. Patient was found to have acute pancreatitis. CAT scan showed duodenal inflammation either from the adjacent pancreatitis or with PUD. Patient had been seen previously for the same complaint and sent home with [facility] going to return the same day. Patient was subsequently admitted and started on IV fluids and made n.p.o. Eventually patient's pain was improving and his diet was advanced to clears. Today patient was feeling much better and his lipase down went down from 4447 down to 652. Patient was advanced to a bland diet which he tolerated well. Patient will be discharged home. In regards to etiology of his pancreatitis, patient has had his gallbladder taken out nor was any evidence of any gallstones in his biliary ducts. Patient states that he had few beers few days prior seems unlikely though it is possible that could be a culprit regards to his abdominal pain but also his triglycerides were elevated at 544. This itself seems unlikely to be causing his pancreatitis but advised the patient to start fenofibrate. Patient will continue with that and to follow-up with his primary care doctor in the coming weeks to see how he is responding. Patient may need eventual referral to a mobile therapist for further evaluation as outpatient. [] Patient Problems: Active and Suspected Problems (Last Reviewed 06/05/20 @ 06:[address] Kyree Mclean MD) Pancreatitis (Acute) Hyperglycemia (Acute) Abdominal pain (Acute) - Physical Exam Vitals/I&O's: Vital Signs Temp Pulse Resp BP Pulse Ox 36.6 C 60 18 154/110 H 99 06/06/20 08:38 06/06/20 08:38 06/06/20 08:38 06/06/20 08:38 06/06/20 08:38 Oxygen Delivery Method Room Air Weight: 105.9 kg Body Mass Index (BMI) 33.5 Finger Stick Blood Glucose 212 Intake and Output for Last 24 Hours 06/04/20 06/05/20 06/06/20 23:59 23:59 23:59 Intake Total 4000 / 5100 4950.83 / 4950.83 Balance 4000 / 5100 4950.83 / 4950.83 Laboratory Results 06/05/20 12:36: POC Glucose 250 H 06/05/20 16:54: POC Glucose 217 H 06/05/20 21:07: POC Glucose 180 H 06/06/20 05:12: Sodium 140, Potassium 3.7, Chloride 112 H, Carbon Dioxide 25.0, Anion Gap 3 L, BUN 6 L, Creatinine 0.45 L, Estim Creat Clear Calc 209.54, Est GFR (MDRD) Af Amer 258, Est GFR (MDRD) Non-Af 213, BUN/Creatinine Ratio 13.3, Glucose 146 H, Calcium 8.2 L, Lipase 652 H 06/06/20 05:12: WBC 8.7, RBC 5.25, Hgb 15.6, Hct 46.8, MCV 89.1, MCH 29.7, MCHC 33.3, RDW Std Deviation 39.8, RDW Coeff of Mariano 12.1, Plt Count 175, MPV 12.4 H, Immature Gran % (Auto) 0.800, Neut % (Auto) 55.7, Lymph % (Auto) 34.1, [place] % (Auto) 6.8, Eos % (Auto) 2.1, Baso % (Auto) 0.5, Absolute Neuts (auto) 4.8, Absolute Lymphs (auto) 2.95, Nucleated RBC % 0 06/06/20 05:12: Hemoglobin A1c 11.5 H 06/06/20 06:55: POC Glucose 157 H 06/06/20 11:52: POC Glucose 232 H Current Medications Acetaminophen (Tylenol) 650 mg PO Q6H PRN PRN PRN Reason: Pain Score 1-10/Temp > 100.7 F Last Admin: 06/05/20 06:45 Dose: 650 mg Documented by: Dextrose (D50w Syringe) 0 gm IV X1 PRN; Protocol PRN Reason: Hypoglycemia Enoxaparin Sodium (Lovenox) 40 mg SC DAILY [facility] Last Admin: 06/06/20 10:07 Dose: 40 mg Documented by: Fenofibrate (Tricor) 48 mg PO DAILY [facility] Last Admin: 06/06/20 10:08 Dose: 48 mg Documented by: Glucagon () 1 mg IM .X1 PRN PRN Reason: Hypoglycemia Hydralazine HCl (Apresoline Iv) 10 mg IV Q4H PRN PRN PRN Reason: SBP > 160 Last Admin: 06/05/20 06:46 Dose: 10 mg Documented by: Lactated Ringer's () 1,000 mls @ 250 mls/hr IV .Q4H [facility] Last Admin: 06/06/20 08:32 Dose: 250 mls/hr Documented by: Sodium Chloride () 250 mls @ 15 mls/hr IV .[id number] PRN PRN Reason: Saline Flush Insulin Glargine (Lantus (Bk)) 34 units SC QHS [facility] Last Admin: 06/05/20 23:33 Dose: Not Given Documented by: Insulin Human Lispro (Humalog Kwikpen (Bk)) 0 unit SC ACHS [facility]; Protocol Last Admin: 06/06/20 11:54 Dose: 4 units Documented by: Lisinopril (Zestril) 20 mg PO DAILY [facility] Last Admin: 06/06/20 10:08 Dose: 20 mg Documented by: Melatonin (Melatonin) 3 mg PO QHS PRN PRN PRN Reason: INSOMNIA Morphine Sulfate () 2 mg IV Q3H PRN PRN PRN Reason: Pain Score 6-10/10 Last Admin: 06/05/20 12:46 Dose: 2 mg Documented by: Ondansetron HCl (Zofran) 4 mg IV Q8H PRN PRN PRN Reason: NAUSEA/VOMITING Pantoprazole Sodium (Protonix) 40 mg PO DAILY [facility] Last Admin: 06/06/20 10:08 Dose: 40 mg Documented by: Senna/Docusate Sodium (Senokot-S, Romana-Colace) 2 tablet PO BID PRN PRN PRN Reason: Constipation Sodium Chloride () 10 - 40 ml IV UD PRN PRN Reason: SALINE FLUSH Last Admin: 06/05/20 06:46 Dose: 10 ml Documented by: Discharge Diet: 1800 Calorie Control Diet Call your doctor if you observe: - - worsening abdominal pain Home Medications: Medications to take at Discharge Insulin Detemir [Levemir FlexPen] 48 units SC QHS 01/29/16 metFORMIN HCl [Glucophage] 1,000 mg PO DAILY 01/29/16 Lisinopril [Zestril] 20 mg PO DAILY 06/04/20 Omeprazole [Prilosec] 20 mg PO DAILY #30 cap 06/04/20 Atorvastatin Calcium 20 mg PO DAILY 06/05/20 Fenofibrate [Tricor] 48 mg PO DAILY #30 tab 06/06/20 Following Prescriptions Were Given to Patient: Fenofibrate [Tricor] 48 mg PO DAILY #30 tab Transmission Status: Pending to [facility] #30 Primary Care Physician: Tanmay Navarro MD [Primary Care Provider] - Within 2 Weeks Minutes spent on discharge:: 32 Medical Necessity - Tobacco Use Smoking Status: Current every day smoker Tobacco Use: Cigarettes Meaningful Use Info Meaningful Use Diagnoses (Choose all that apply): None applicable Inpatient E&M: 12430 Disch Hosp
--- NOTE | 2020-06-09 15:35 | CASEMGMT ---
KARLOS YANEZ DC PHONE CALL DC DATE: 06/06/2020 DC DISPOSITION: Home DC DIAGNOSIS: pancreatitis LACE/STRATA: 08/02 F/U APPTS MADE PRIOR TO DC: no, but patient will be calling today for follow up appointment PRESCRIPTIONS ACQUIRED BY PT: no Intro role of CM to patient via phone. Patient states he is feeling improved. Reviewed medications with patient. He has not picked up Tricor prescription, but states he will do that today. Reviewed medication list with patient and purpose of medications. Patient knew his diabetic medications well, but reviewed Lipitor, Prilosec and Tricor. Patient had not made appointment with PCP yet, but states he will do this today. No care improvement suggestions were given. Patient states his care was excellent. Rajiv SHAHN RN ACM
== END 2020-06-06 12:52 | disposition home or self-care (01) | DRG 440 ==
LOC: ED 05:06 → MS3 05:51
PROVIDERS: Admitting Provider Hospitalist; Emergency Provider Emergency Medicine; PCP Family Medicine; Referring Provider Hospitalist
DX: K85.90 Acute pancreatitis without necrosis or infection, unspecified (principal); E78.5 Hyperlipidemia, unspecified; I10 Essential (primary) hypertension; F17.210 Nicotine dependence, cigarettes, uncomplicated; K29.80 Duodenitis without bleeding; E11.65 Type 2 diabetes mellitus with hyperglycemia; N50.9 Disorder of male genital organs, unspecified; E78.1 Pure hyperglyceridemia; Z90.49 Acquired absence of other specified parts of digestive tract; Z79.84 Long term (current) use of oral hypoglycemic drugs; Z83.3 Family history of diabetes mellitus; Z82.49 Family history of ischemic heart disease and other diseases of the circulatory system
CPT/HCPCS: 36415; 76870; 80048; 80053; 80061; 82962; 83036; 83690; 85025; 93976; 99285; 99406; J7030; J7120; A4216

== ENCOUNTER 2021-11-27 09:25 | Outpatient (CLI) | payer BC, SELFPAY ==
[2021-11-27 12:39] LABS: Anion Gap 6 (5-15); BUN 14 mg/dL (7-18); BUN/Creat Ratio 19.1 RATIO (10-20); Calcium,Total 8.8 mg/dL (8.5-10.1); Chloride 100 mmol/L (98-107); Cholesterol 156 mg/dL (200); Creatinine, Serum 0.73 mg/dL (0.70-1.30); EST Glomerular Filtration Rate 121 mL/min (>60); Est Glom Filt Rate - Afr Amer 146 mL/min (>60); Glucose 355 mg/dL (74-106); High Density Lipoprotein 27 mg/dL; Potassium 4.2 mmol/L (3.5-5.1); Sodium Level 134 mmol/L (136-145); Triglycerides 880 mg/dL
[2021-11-27 13:14] LABS: Microalbumin:Creatinine Ratio 931.6 mg/g CRE (<30 mg/g CRE)
== END 2021-11-27 23:59 | disposition short-term general hospital (02) ==
LOC: MTLAB 09:29
PROVIDERS: PCP Family Medicine; Referring Provider Family Medicine; Visit Provider Family Medicine
DX: E11.9 Type 2 diabetes mellitus without complications (principal)
CPT/HCPCS: 36415; 80048; 80061; 82043; 82570

== ENCOUNTER 2021-12-30 20:30 | Emergency (ER) | payer BC, SELFPAY ==
[2021-12-30 20:30] VITALS: BP 156/110; PULSE 78; RESP 16; TEMP 36.1; O2SAT 98; BMI 32.1
[2021-12-30] MEDS: Tetracaine 0.5% Ophthalmic Bottle OPHTHALMIC (20:52)
[2021-12-30] MEDS: Fluorescein 1 MG STRIP 1 STRIP OPHTHALMIC (20:52)
--- NOTE | 2021-12-30 20:53 | EX.ED.VIS.EY ---
HPI History of Present Illness Chief Complaint: Eye Problem Informant: patient and parent Narrative Narrative: Patient is a 51 year old male presenting with left eye pain and eyelid swelling. Patient was driving home from work and rolled the windows down and shortly afterwards up something hit him in the left eye. He immediately had pain. He feels that his eyelid is swollen. Cannot find any foreign body in his eye. Came to the emergency room for further evaluation. Feels that his eyelid is twitching and vision is blurry. PFSH PFS Medical History Bone fracture Diabetes type 2, uncontrolled HTN (hypertension) Home Medications insulin detemir U-100 48 units SC QHS 01/29/16 [History Last Taken 06/05/20 03:00] metformin 1,000 mg PO DAILY 01/29/16 [History Last Taken 06/04/20 07:30] lisinopril 20 mg PO DAILY 06/04/20 [History Last Taken 06/04/20 07:30] omeprazole 20 mg PO DAILY #30 cap 06/04/20 [Rx Last Taken Unknown] atorvastatin 20 mg PO DAILY 06/05/20 [History Last Taken 06/04/20 07:30] fenofibrate nanocrystallized 48 mg PO DAILY #30 tab 06/06/20 [Rx Last Taken Unknown] sildenafil 50 mg PO DAILY PRN PRN 12/30/21 [History Last Taken Unknown] Allergy/AdvReac Type Severity Reaction Status Date / Time Penicillins Allergy Anaphylaxis Verified 06/05/20 04:08 Family History Unknown Cancer Diabetes Heart disease Hypertension Surgical History H/O foot surgery H/O shoulder surgery Hx of cholecystectomy Social History Smoking Status: Current every day smoker tobacco type: cigarettes alcohol intake: never substance use type: does not use ROS ROS ED Constitutional Constitutional ED: Denies chills or fever(s) Eyes Eyes: Reports blurry vision and other Details: left eye pain, left eyelid swelling ENT ENT ED: Denies ear pain or sore throat Cardiovascular Cardiovascular: Denies chest pain Respiratory/Chest Respiratory/Chest: Denies cough or dyspnea Gastrointestinal Gastrointestinal: Denies abdominal pain, nausea or vomiting Integumentary Denies Abrasions or rash Neurologic Neurologic: Denies headache(s) EXAM Physical Exam Const Vital Signs: 12/30/21 20:30 Temperature 97.0 F L Temperature Source Temporal Pulse Rate 78 Respiratory Rate 16 Blood Pressure 156/110 H Blood Pressure Mean 125 Pulse Ox 98 Oxygen Delivery Method Room Air Positive well nourished and well developed General Appearance ED: well developed HEENT atraumatic Nose: external nose normal Eyes Visual Acuity: acuity normal Alignment: alignment normal Eyelid: eyelids abnormal left upper eyelid foreign body (black speck), swelling and tenderness Conjunctiva: conjunctiva abnormal left Details: injection Sclera: sclera abnormal Positive for left Details: other (edema medial sclera- 9 o clock position ) Cornea: cornea abnormal Positive for left Cornea - Left Eye: Positive for abrasion (mid pupil, negative Canelo sign); Negative for foreign body and fluorescein used Pupil: PERRL EOM: EOM abnormal Slit Lamp: slit lamp exam performed with fluorescein Resp normal respiratory effort Extremity normal to inspection General Extremety ED: Negative for edema General Extremity: Negative for edema Neuro oriented x3, CN's II-XII intact bilaterally and moves all extremities Sensorium / Orientation: alert Skin Lesions: no lesions Rashes: no rashes MDM MDM MDM Narrative Medical decision making narrative: Patient evaluated for sudden onset of foreign body sensation to his left eye with associated eyelid swelling and eye pain. Visual acuity is symmetric. Foreign body is noted on eversion of the eyelid. Patient has improvement of symptoms with tetracaine. Corneal abrasion noted. Is started on erythromycin ointment. Discharged home with instructions to use erythromycin ointment 4 times a day for 5 days. Counseled on return precaution. Given ophthalmology for outpatient follow-up. Discharge Plan Triage Chief Complaint: Eye Problem ED Provider: Do Hubbard Dx/Rx/DC Orders Clinical Impression: Foreign body of eyelid, left, Abrasion, corneal Prescriptions: No Action metformin 1,000 MG tablet 1,000 mg PO DAILY RF: 0 insulin detemir U-100 100 UNITS/ML insulin pen 48 units SC QHS RF: 0 lisinopril 20 MG tablet 20 mg PO DAILY RF: 0 omeprazole 20 MG capsule 20 mg PO DAILY Qty: 30 RF: 0 atorvastatin 20 MG tablet 20 mg PO DAILY RF: 0 fenofibrate nanocrystallized 48 MG tablet 48 mg PO DAILY Qty: 30 RF: 0 sildenafil 50 mg tablet 50 mg PO DAILY PRN PRN (Reason: erectial dysfunction) RF: 0 Primary Care Provider: Tanmay Navarro Referrals: Tanmay Navarro MD [Primary Care Provider] - Dahiana Hernandez MD [STAFF PHYSICIAN] - Activity Restrictions/Additional Instructions: Use erythromycin ointment to the left eye 4 times a day for 5 days. Disposition Disposition: Home, Self Care
[2021-12-30] MEDS: Erythromycin Base 1 OPTH.TUBE 1 APPLIC LEFT EYE (21:30)
== END 2021-12-30 21:34 | disposition home or self-care (01) ==
PROVIDERS: Emergency Provider Emergency Medicine; PCP Family Medicine; Visit Provider Emergency Medicine
DX: T15.12XA Foreign body in conjunctival sac, left eye, initial encounter (principal); E11.9 Type 2 diabetes mellitus without complications; I10 Essential (primary) hypertension; H53.8 Other visual disturbances
CPT/HCPCS: 99283

== ENCOUNTER → 2022-02-26 | Outpatient (CLI) | payer BC, SELFPAY ==
[2022-02-26 12:26] LABS: Anion Gap 7 (5-15); BUN 9 mg/dL (7-18); BUN/Creat Ratio 14.8 RATIO (10-20); Calcium,Total 9.6 mg/dL (8.5-10.1); Chloride 105 mmol/L (98-107); Cholesterol 157 mg/dL (200); Creatinine, Serum 0.61 mg/dL (0.70-1.30); EST Glomerular Filtration Rate 150 mL/min (>60); Est Glom Filt Rate - Afr Amer 181 mL/min (>60); Glucose 80 mg/dL (74-106); High Density Lipoprotein 34 mg/dL; Potassium 4.2 mmol/L (3.5-5.1); Sodium Level 138 mmol/L (136-145); Triglycerides 315 mg/dL; Very Low Density Lipoprotein 63 mg/dL (5-40)
== END | disposition home or self-care (01) ==
LOC: MFPLAB 10:24
PROVIDERS: PCP Family Medicine; Referring Provider Family Medicine; Visit Provider Family Medicine
DX: E11.9 Type 2 diabetes mellitus without complications (principal)
CPT/HCPCS: 36415; 80048; 80061

== ENCOUNTER 2023-11-04 06:16 | Emergency (ER) | payer SELFPAY ==
[2023-11-04 06:17] VITALS: BP 181/118; PULSE 89; RESP 16; TEMP 36.3; O2SAT 96; BMI 36.6
--- NOTE | 2023-11-04 06:31 | EDS_ITS ---
HPI History of Present Illness Chief Complaint: Headache Informant: patient Onset/Context/Timing Onset: Days (3) Context: Gradual and Onset Timing: Continuous Quality -Headache: Positive for Other (aching) Location: bifrontal Current Severity: Moderate Maximum Severity: Moderate Worsened by: nothing Relieved by: nothing Associated Symptoms/Injury Associated Symptoms: Positive for - (L sided nosebleed, elevated BP); Negative for Fever, Nausea, Vomiting, Sore Throat, Sinus Pressure, Numbness, Tingling, Preceding Aura, Visual Changes, Blurred Vision, Photophobia or Visual Loss Injury - [place]: Negative for Direct Trauma, Fall or Assault Narrative Narrative: States he has had an unusual headache for him for the last few days and intermittent left-sided spontaneous nosebleed, he has been checking his blood pressure couple times, it was 190 at one point and 160/100 another reading, he has been compliant with his blood pressure medication which is lisinopril 20 mg, he took an extra dose yesterday because of the elevated pressure. He has had no changes in his medications lately. No recent illness or soce-jqo-cevsyfe medications including decongestants. He denies any focal neurologic symptoms, thunderclap/sudden onset, nausea or vomiting, vision changes, confusion, neck stiffness, fevers or chills, chest pain, or dyspnea; he just states he does not feel right. He states this morning he checked his blood sugar prior to coming here and it was in the 340 range, he took his Levemir and other diabetes pills before coming. [facility] Medical History Bone fracture Diabetes type 2, uncontrolled HTN (hypertension) Home Medications insulin detemir U-100 100 unit/mL (3 mL) subcutaneous pen 60 unit subcut DAILY diabetes 01/29/16 [History Last Taken 06/05/20 03:00] metformin 1,000 mg tablet 1,000 mg PO DAILY DM 01/29/16 [History Last Taken 06/04/20 07:30] lisinopril 20 mg tablet 20 mg PO DAILY BP 06/04/20 [History Last Taken 06/04/20 07:30] atorvastatin 20 mg tablet 20 mg PO DAILY high cholesterol 06/05/20 [History Last Taken 06/04/20 07:30] fenofibrate nanocrystallized 48 mg tablet 48 mg PO DAILY #30 tabs 06/06/20 [Rx Last Taken Unknown] clonidine HCl 0.1 mg tablet 0.1 mg PO TID PRN SBP > 160 #20 tabs 11/04/23 [Rx Last Taken Unknown] insulin lispro 100 unit/mL subcutaneous pen 20 unit subcut TID PRN 11/04/23 [History Last Taken Unknown] Allergy/AdvReac Type Severity Reaction Status Date / Time Penicillins Allergy Anaphylaxis Verified 11/04/23 06:21 Family History Unknown Cancer Diabetes Heart disease Hypertension Surgical History H/O foot surgery H/O shoulder surgery Hx of cholecystectomy Social History Smoking Status: Current every day smoker tobacco type: cigarettes alcohol intake: never substance use type: does not use ROS ROS ED Constitutional Constitutional ED: Denies chills or fever(s) Eyes Eyes: Denies change in vision or diplopia ENT ENT ED: Reports epistaxis; Denies rhinorrhea or sore throat Cardiovascular Cardiovascular: Denies chest pain or palpitations Respiratory/Chest Respiratory/Chest: Denies cough or dyspnea Gastrointestinal Gastrointestinal: Denies abdominal pain, diarrhea, nausea or vomiting Genitourinary Genitourinary ED: Denies dysuria or hematuria Musculoskeletal Musculoskeletal: Denies back pain or neck pain Integumentary Denies abscess or rash Neurologic Neurologic: Reports headache(s); Denies paresthesias or weakness Psychiatric Psychiatric: Denies anxiety or suicidal thoughts EXAM Physical Exam Const Vital Signs: 11/04/23 06:17 11/04/23 07:07 Temperature 97.4 F L Temperature Source Temporal Pulse Rate 89 85 Respiratory Rate 16 18 Blood Pressure 181/118 H 183/108 H Blood Pressure Mean 139 133 Pulse Ox 96 95 Oxygen Delivery Method Room Air Room Air Positive well nourished and well developed General Appearance ED: well developed and NAD HEENT Reports moist mucous membranes HEENT Narrative: Area of recent bleeding at Kesselbach's plexus left anterior naris no active bleeding. No posterior oropharyngeal blood. Right side of the nose is clear. normocephalic and atraumatic Eyes PERRL and EOMs intact bilaterally Neck full ROM, no lymphadenopathy, supple and no meningeal signs Resp normal respiratory effort and clear to auscultation bilaterally Cardio regular rate, regular rhythm and no murmurs GI non-tender and non-distended Auscultation: normoactive bowel sounds Palpation: soft Back/Spine no CVA tenderness General Back: other FROM Extremity normal to inspection General Extremety ED: Negative for edema, pulses abnormal or tenderness General Extremity: Negative for edema or pulses abnormal Neuro oriented x3, CN's II-XII intact bilaterally and no sensory deficits noted Sensorium / Orientation: awake and alert Gait (Neuro): normal gait Motor Exam: strength 5/5 throughout Psych mental status grossly normal Skin no rashes or lesions noted and no wounds MDM MDM MDM Narrative Medical decision making narrative: I think the patient is elevated blood pressure is probably causing his headache and his nosebleed 2. While performing some basic labs here, he was given IV hydralazine 10 mg as well as oral clonidine 0.1 mg. On reevaluation his blood pressure is 151/94 and his headache is improved. He had no recurrent bleeding from his nose, we cauterized that see the procedure note. His blood sugar was elevated but coming down, and I am not going to add more insulin to the insulin he already took prior to coming here. He can monitor that at home. This might have been a stress response. I am going to prescribe him clonidine to use for the next few days until he can follow-up with his doctor for further evaluation and possible medication management for his blood pressure. He is comfortable with that plan. Lab Data Attestation: I reviewed the patient's lab results. Labs: Laboratory Results - last 24 hr 11/04/23 06:28 WBC 7.4 RBC 5.99 Hgb 17.3 H Hct 52.2 MCV 87.1 MCH 28.9 MCHC 33.1 RDW Std Deviation 40.3 RDW Coeff of Mariano 12.6 Plt Count 175 MPV 12.5 H Immature Gran % (Auto) 1.100 H Neut % (Auto) 46.0 L Lymph % (Auto) 41.4 H [place] % (Auto) 7.5 Eos % (Auto) 3.2 Baso % (Auto) 0.8 Absolute Neuts (auto) 3.4 Absolute Lymphs (auto) 3.08 Nucleated RBC % 0 Sodium 136 Potassium 4.1 Chloride 105 Carbon Dioxide 25.0 Anion Gap 6 BUN 19 H Creatinine 0.81 Estim Creat Clear Calc 112.65 Est GFR (MDRD) Af Amer 130 Est GFR (MDRD) Non-Af 107 BUN/Creatinine Ratio 23.5 H Glucose 310 H Calcium 8.8 Procedures Other Procedures Procedure(s): Epistaxis care: Left naris without active bleeding, irritated area at the septum noted without perforation or hematoma. This was cauterized using silver nitrate stick, there was no bleeding or complication it was tolerated well. Discharge Plan Triage Chief Complaint: Headache ED Provider: Daniel Ngo Dx/Rx/DC Orders Clinical Impression: Hyperglycemia due to type 2 diabetes mellitus, Accelerated hypertension, Headache, Anterior epistaxis Instructions: Hypertension Dc, ED Epistaxis (Adult) Prescriptions: New clonidine HCl 0.1 mg tablet 0.1 mg PO TID PRN (Reason: SBP > 160) Qty: 20 0RF No Action metformin 1,000 MG tablet 1,000 mg PO DAILY Patient Comments: diabetes insulin detemir U-100 100 UNITS/ML insulin pen 60 unit SC DAILY Patient Comments: diabetes lisinopril 20 MG tablet 20 mg PO DAILY atorvastatin 20 MG tablet 20 mg PO DAILY fenofibrate nanocrystallized 48 MG tablet 48 mg PO DAILY Qty: 30 0RF insulin lispro 100 unit/mL insulin pen 20 unit SUBCUT TID PRN Patient Comments: pt reports he only takes this if his blood sugar is high. INJECT 20 UNITS SUBCUTANEOUSLY THREE TIMES DAILY Primary Care Provider: Tanmay Navarro Referrals: Tanmay Navarro MD [Primary Care Provider] - Activity Restrictions/Additional Instructions: Watch your blood sugar at home today and watch your carbohydrate intake. Disposition Disposition: Home, Self Care
[2023-11-04] MEDS: hydrALAZINE 20 MG/ML Vial 10 MG IV (06:33)
[2023-11-04] MEDS: cloNIDine HCl 0.1 MG Tablet 0.100000000000000006 MG PO (06:33)
[2023-11-04 06:40] LABS: Absolute Lymphocyte Count 3.08 X10^3/uL (0.83-4.51); Absolute Neutrophil Count 3.4 X10^3/uL (2.0-7.7); Basophil# 0.06 X10^3/uL; Basophil% 0.8 % (0-1); Eosinophil# 0.24 X10^3/uL; Eosinophils% 3.2 % (0-5); Hematocrit 52.2 % (40-54); Hemoglobin 17.3 g/dL (13.0-16.5); Lymphocyte # 3.08 X10^3/ul (0.83-4.51); Lymphocyte % 41.4 % (19-41); Mean Corp Hgb Conc 33.1 g/dL (32-36); Mean Corpuscular Hgb 28.9 pg (27.0-32.0); Mean Corpuscular Volume 87.1 fL (80-94); Mean Platelet Vol. 12.5 fl (6.2-12.0); Monocyte# 0.56 X10^3/uL; Monocyte% 7.5 % (0-10); NRBC Flagged by Analyzer 0 % (0-5); Neutrophil # 3.42 X10^3/uL (2.7-7.7); Platelet Count 175 K/mm3 (150-450); RBC Distribution Width CV 12.6 % (11.6-14.6); RBC Distribution Width SD 40.3 fl (35.1-43.9); Red Blood Count 5.99 M/mm3 (4.6-6.2); White Blood Count 7.4 K/mm3 (4.4-11.0)
[2023-11-04] MEDS: Mixture 30 ML Bottle TOPICAL (06:43)
[2023-11-04] MEDS: Silver Nitrate (BKC) 1 EACH TOPICAL (06:43)
[2023-11-04 06:54] LABS: Anion Gap 6 (5-15); BUN 19 mg/dL (7-18); BUN/Creat Ratio 23.5 RATIO (10-20); Calcium,Total 8.8 mg/dL (8.5-10.1); Chloride 105 mmol/L (98-107); Creatinine, Serum 0.81 mg/dL (0.70-1.30); EST Glomerular Filtration Rate 107 mL/min (>60); Est Glom Filt Rate - Afr Amer 130 mL/min (>60); Estimated Creatinine Clearance 112.65 ml/min; Glucose 310 mg/dL (74-106); Potassium 4.1 mmol/L (3.5-5.1); Sodium Level 136 mmol/L (136-145)
[2023-11-04 07:07] VITALS: BP 183/108; PULSE 85; RESP 18; O2SAT 95
--- OUTSIDE RECORDS SUMMARY | 2023-11-04 07:23 | XMS RPT_ITS | CCD ---
Author Name Unknown Address [address] [place] [address] Organization [facility] Care Team Providers Care Tobacco Drummer Name Role Phone NO, DOCTOR ON Referring Unavailable NO, DOCTOR ON Consulting Unavailable CHARLETTE NEAL DO Attending Unavailable VAL, CHARLETTE ALBERTS Primary Care Unavailable DIDCHARLETTE PERES DO Admitting Unavailable Allergies Allergy Classification Reported Allergen(s) Allergy Type Date of Onset Reaction(s) Facility (1 source) Penicillin Drug Allergy [facility] Repository Encounters Encounter Date Encounter Type Care Provider Facility Start: 12-23-2018 End: 12-23-2018 Emergency department patient visit DOCTOR ON NO [facility] Payers Date Payer Category Payer Unknown [id number] Private Health Insurance [id number] Summary Purpose Family History No Family History Records Found Advance Directives No Advanced Directives Records Found Additional Source Comments (unrecognized sect ion and content) No Status Records Found INFORMATION SOURCE (unrecogn ized section and content) FOR RECORDS PERTAINING TO PATIENTS WHO ARE OR HAVE BEEN ENROLLED IN A CHEMICAL DEPENDENCY/SUBSTANCEABUSE PROGRAM, SOME INFORMATION MAY BE OMITTED. This clinical summary was aggregated from multiple sources. Caution should be exercised in using it in the provision of clinical care. This summary normalizes information from multiple sources, and as a consequence, information in this document may materially change the coding, format and clinical context of patient data. In addition, data may be omitted in some cases. CLINICAL DECISIONS SHOULD BE BASED ON THE PRIMARY CLINICAL RECORDS. [employer] [facility]. provides no warranty or guarantee of the accuracy or completeness of information in this document.
[2023-11-04 07:27] LABS: Carboxyhemoglobin Frac (CO) 8.2 % (0.0-1.5)
[2023-11-04 07:45] VITALS: BP 154/97; PULSE 85; O2SAT 96
--- NOTE | 2023-11-04 07:48 | ED.RN ---
Ellen Mix was not used by Dr. Ngo. returned med to refrigerator unopened and cancelled order.
== END 2023-11-04 07:50 | disposition home or self-care (01) ==
PROVIDERS: Emergency Provider Emergency Medicine; PCP Family Medicine; Visit Provider Emergency Medicine
DX: R04.0 Epistaxis (principal); E11.65 Type 2 diabetes mellitus with hyperglycemia; Z79.4 Long term (current) use of insulin; R51.9 Headache, unspecified; I10 Essential (primary) hypertension; Z79.899 Other long term (current) drug therapy; Z79.84 Long term (current) use of oral hypoglycemic drugs; Z90.49 Acquired absence of other specified parts of digestive tract; F17.210 Nicotine dependence, cigarettes, uncomplicated
CPT/HCPCS: 30901; 80048; 82375; 85025; 99282; A4216

== ENCOUNTER 2023-11-04 15:34 | Emergency (ER) | payer SELFPAY ==
[2023-11-04 15:36] VITALS: BP 161/92; PULSE 94; RESP 18; TEMP 36.1; O2SAT 95; BMI 43.3
--- NOTE | 2023-11-04 16:31 | EX.ED.DYSGE1 ---
HPI History of Present Illness Chief Complaint: Hypertension Informant: patient Narrative Narrative: Patient is a 52-year-old male with history of hyperglycemia, hypertension and was seen in the ER early this morning for epistaxis and high blood pressure as well as high blood sugar and discharged home after blood pressure control and nitro cautery to his nose. Patient states he went home and lay down. Is not taking any medication since leaving the emergency room. He was prescribed clonidine but has not been able to pick it up yet. He notes he developed a headache again we checked his blood pressure at home it was 200 systolic and his nose started bleeding again. The bleeding is coming from the left side. He notes that the blood seems to be dripping down the back of his throat and he actually threw up some blood en route with EMS. He denies any recent URI symptoms or nasal trauma. Nasal packing was not placed earlier today. EMS arrived he states his blood pressure was 190/110 and he was transferred to the emergency room. Patient [place] any dizziness or lightheadedness. Denies any numbness or tingling. Denies any vision changes. Has not checked his blood sugar since has been home either. [facility] Medical History Bone fracture Diabetes type 2, uncontrolled HTN (hypertension) Home Medications insulin detemir U-100 100 unit/mL (3 mL) subcutaneous pen 60 unit subcut DAILY diabetes 01/29/16 [History Last Taken 06/05/20 03:00] metformin 1,000 mg tablet 1,000 mg PO DAILY DM 01/29/16 [History Last Taken 06/04/20 07:30] lisinopril 20 mg tablet 20 mg PO DAILY BP 06/04/20 [History Last Taken 06/04/20 07:30] atorvastatin 20 mg tablet 20 mg PO DAILY high cholesterol 06/05/20 [History Last Taken 06/04/20 07:30] fenofibrate nanocrystallized 48 mg tablet 48 mg PO DAILY #30 tabs 06/06/20 [Rx Last Taken Unknown] clonidine HCl 0.1 mg tablet 0.1 mg PO TID PRN SBP > 160 #20 tabs 11/04/23 [Rx Last Taken Unknown] insulin lispro 100 unit/mL subcutaneous pen 20 unit subcut TID PRN 11/04/23 [History Last Taken Unknown] Allergy/AdvReac Type Severity Reaction Status Date / Time Penicillins Allergy Anaphylaxis Verified 11/04/23 06:21 Family History Unknown Cancer Diabetes Heart disease Hypertension Surgical History H/O foot surgery H/O shoulder surgery Hx of cholecystectomy Social History Smoking Status: Current every day smoker tobacco type: cigarettes alcohol intake: never substance use type: does not use ROS ROS ED Constitutional Constitutional ED: Denies chills or fever(s) Eyes Eyes: Denies blurry vision or change in vision ENT ENT ED: Reports other Details: nose bleed Cardiovascular Cardiovascular: Denies chest pain Gastrointestinal Gastrointestinal: Reports vomiting; Denies nausea Musculoskeletal Musculoskeletal: Denies arthralgias or myalgias Integumentary Denies rash Neurologic Neurologic: Reports headache(s); Denies paresthesias or weakness Hematologic/Lymphatic Hematologic/Lymphatic: Denies easy bleeding or easy bruising EXAM Physical Exam Const Vital Signs: 11/04/23 15:36 11/04/23 16:17 11/04/23 17:00 Temperature 97 F L Temperature Source Temporal Pulse Rate 94 Respiratory Rate 18 Respiratory Effort Normal Non-Labored Respiratory Pattern Normal Blood Pressure 161/92 H 142/94 H Blood Pressure Mean 115 110 Pulse Ox 95 Oxygen Delivery Method Room Air 11/04/23 17:19 11/04/23 18:55 11/04/23 19:06 Temperature Temperature Source Pulse Rate Respiratory Rate Respiratory Effort Respiratory Pattern Blood Pressure 137/87 H 137/97 H 129/90 H Blood Pressure Mean 103 110 103 Pulse Ox Oxygen Delivery Method 11/04/23 19:16 Temperature Temperature Source Pulse Rate 75 Respiratory Rate 15 Respiratory Effort Respiratory Pattern Blood Pressure 139/97 H Blood Pressure Mean 111 Pulse Ox Oxygen Delivery Method Positive well nourished and well developed General Appearance ED: well developed and NAD; Negative for pallor HEENT Reports moist mucous membranes HEENT Narrative: Blood noted in the left nares with no active bleeding/source of bleeding is visualized. Area of the left posterior septum that appears to be cauterized earlier today. Do not see any active bleeding from that area. There is a clot of blood noted in the posterior oropharynx with no brisk bleeding appreciated. Eyes PERRL and EOMs intact bilaterally Neck supple Chest Wall inspection of chest normal and palpation of chest normal Resp normal respiratory effort and clear to auscultation bilaterally Cardio regular rate, regular rhythm and no murmurs GI normal to inspection, nondistended, normoactive bowel sounds and non-tender Extremity normal to inspection Neuro oriented x3 Sensorium / Orientation: alert Motor Exam: Negative for general weakness Psych mental status grossly normal Mood & Affect: anxious Skin no rashes or lesions noted and no wounds General Skin Exam: Negative for pallor MDM MDM MDM Narrative Medical decision making narrative: Patient is evaluated for concern of high blood pressure and recurrent epistaxis. Patient has a mild bleeding at the time. Blood pressure mildly elevated 161/92 but is nowhere as high as it was reported at home and is lower than it was earlier today. He did not picker/puller his clonidine yet as it was not ready at the drugstore when he left the ER. Repeat CBC and CMP is stable. Hemoglobin is still elevated at 17.5. He is mildly hyperglycemic at 314 however this is largely unchanged from where he was earlier today. He has a normal anion gap. Localized pressure applied and patient has no further bleeding. As he keeps getting his nosebleeds and 5.5 cm anterior nasal packing placed and inflated. Patient monitored but had a little bit more bleeding and was not tolerating the packing. He states he was causing a worsening headache. Packing is removed at his request. Patient is monitored and has no further bleeding. His blood pressures continue to improve and is now currently 129/90. Patient is counseled on symptomatic treatment for epistaxis. Has clonidine to take for elevated blood pressure. Will follow-up outpatient with ENT. Given return precautions to the ER. As he does not want further packing will defer Merisel or petroleum gauze packing at this time. Counseled to use cool-mist humidifier at night and nasal saline to keep his mucosa moist. Lab Data Attestation: I reviewed the patient's lab results. Labs: Laboratory Results - last 24 hr 11/04/23 16:30 WBC 7.7 RBC 6.05 Hgb 17.5 H Hct 52.5 MCV 86.8 MCH 28.9 MCHC 33.3 RDW Std Deviation 40.5 RDW Coeff of Mariano 12.8 Plt Count 185 MPV 12.7 H Sodium 135 L Potassium 4.1 Chloride 103 Carbon Dioxide 27.0 Anion Gap 5 BUN 18 Creatinine 0.75 Estim Creat Clear Calc 121.67 Est GFR (MDRD) Af Amer 142 Est GFR (MDRD) Non-Af 117 BUN/Creatinine Ratio 24.1 H Glucose 314 H Calcium 9.2 Discharge Plan Triage Chief Complaint: Hypertension ED Provider: Do Hubbard Dx/Rx/DC Orders Clinical Impression: Anterior epistaxis, Headache, Hypertension Instructions: ED Epistaxis (Adult), ED Hypertension, Established Prescriptions: No Action metformin 1,000 MG tablet 1,000 mg PO DAILY Patient Comments: diabetes insulin detemir U-100 100 UNITS/ML insulin pen 60 unit SC DAILY Patient Comments: diabetes lisinopril 20 MG tablet 20 mg PO DAILY atorvastatin 20 MG tablet 20 mg PO DAILY fenofibrate nanocrystallized 48 MG tablet 48 mg PO DAILY Qty: 30 0RF insulin lispro 100 unit/mL insulin pen 20 unit SUBCUT TID PRN Patient Comments: pt reports he only takes this if his blood sugar is high. INJECT 20 UNITS SUBCUTANEOUSLY THREE TIMES DAILY clonidine HCl 0.1 mg tablet 0.1 mg PO TID PRN (Reason: SBP > 160) Qty: 20 0RF Primary Care Provider: Tanmay Navarro Referrals: Spencer Hughes MD [Med Staff - Active Staff] - 3-5 Days if not improving Tanmay Navarro MD [Primary Care Provider] - Activity Restrictions/Additional Instructions: If your bleeding starts again please immediately apply pressure and hold for 15 minutes. If you continue to bleed gently blow out any clots that have formed and then spray Afrin into your nose. Again hold pressure for 15 minutes. You may also take clean cotton ball soaked in Afrin and place it in your nose. If the bleeding persist please return to the emergency room. I recommend using [id number] nasal saline to help keep your nose moist in the meantime or using cool-mist humidifier when you sleep. You have clonidine at the pharmacy to picker/puller and take your blood pressure goes above 160. You have enough prescription sent in to get you through the weekend take and follow-up with ENT as well as your primary care doctor. Please take your insulin when you get home as your blood sugar was still 300 today. Disposition Disposition: Home, Self Care Discharge Date/Time: 11/04/23 19:35
[2023-11-04 16:57] LABS: Hematocrit 52.5 % (40-54); Hemoglobin 17.5 g/dL (13.0-16.5); Mean Corp Hgb Conc 33.3 g/dL (32-36); Mean Corpuscular Hgb 28.9 pg (27.0-32.0); Mean Corpuscular Volume 86.8 fL (80-94); Mean Platelet Vol. 12.7 fl (6.2-12.0); Platelet Count 185 K/mm3 (150-450); RBC Distribution Width CV 12.8 % (11.6-14.6); RBC Distribution Width SD 40.5 fl (35.1-43.9); Red Blood Count 6.05 M/mm3 (4.6-6.2); White Blood Count 7.7 K/mm3 (4.4-11.0)
[2023-11-04 17:00] VITALS: BP 142/94
--- OUTSIDE RECORDS SUMMARY | 2023-11-04 17:00 | XMS RPT_ITS | CCD ---
Author Name Unknown Address [address] [place] [address] Organization [facility] Care Team Providers Care Interactive Project Manager Name Role Phone NO, DOCTOR ON Referring Unavailable NO, DOCTOR ON Consulting Unavailable CHARLETTE NEAL DO Attending Unavailable VAL, HCARLETTE ALBERTS Primary Care Unavailable DIDCHARLETTE PERES DO Admitting Unavailable Allergies Allergy Classification Reported Allergen(s) Allergy Type Date of Onset Reaction(s) Facility (1 source) Penicillin Drug Allergy [facility] Repository Encounters Encounter Date Encounter Type Care Provider Facility Start: 12-23-2018 End: 12-23-2018 Emergency department patient visit DOCTOR ON NO [facility] Payers Date Payer Category Payer Unknown [id number] Private Health Insurance [id number] Summary Purpose Family History No Family History [...] BE BASED ON THE PRIMARY CLINICAL RECORDS. [employer] [facility]. provides no warranty or guarantee of the accuracy or completeness of information in this document.
[2023-11-04] MEDS: Mixture 30 ML Bottle 20 ML TOPICAL (17:03)
[2023-11-04 17:10] LABS: Anion Gap 5 (5-15); BUN 18 mg/dL (7-18); BUN/Creat Ratio 24.1 RATIO (10-20); Calcium,Total 9.2 mg/dL (8.5-10.1); Chloride 103 mmol/L (98-107); Creatinine, Serum 0.75 mg/dL (0.70-1.30); EST Glomerular Filtration Rate 117 mL/min (>60); Est Glom Filt Rate - Afr Amer 142 mL/min (>60); Estimated Creatinine Clearance 121.67 ml/min; Glucose 314 mg/dL (74-106); Potassium 4.1 mmol/L (3.5-5.1); Sodium Level 135 mmol/L (136-145)
[2023-11-04 17:19] VITALS: BP 137/87
[2023-11-04 18:55] VITALS: BP 137/97
[2023-11-04 19:06] VITALS: BP 129/90
[2023-11-04 19:16] VITALS: BP 139/97; PULSE 75; RESP 15
== END 2023-11-04 19:35 | disposition home or self-care (01) ==
PROVIDERS: Emergency Provider Emergency Medicine; PCP Family Medicine; Visit Provider Emergency Medicine
DX: R04.0 Epistaxis (principal); E11.65 Type 2 diabetes mellitus with hyperglycemia; Z79.4 Long term (current) use of insulin; R51.9 Headache, unspecified; I10 Essential (primary) hypertension; Z79.899 Other long term (current) drug therapy; Z79.84 Long term (current) use of oral hypoglycemic drugs; Z90.49 Acquired absence of other specified parts of digestive tract; F17.210 Nicotine dependence, cigarettes, uncomplicated
CPT/HCPCS: 30901; 80048; 85027; 99283; A4216

== ENCOUNTER → 2023-11-07 | Outpatient (CLI) | payer SELFPAY ==
[2023-11-07 13:16] LABS: Anion Gap 8 (5-15); BUN 17 mg/dL (7-18); BUN/Creat Ratio 19.2 RATIO (10-20); Calcium,Total 8.9 mg/dL (8.5-10.1); Chloride 103 mmol/L (98-107); Creatinine, Serum 0.89 mg/dL (0.70-1.30); EST Glomerular Filtration Rate 96 mL/min (>60); Est Glom Filt Rate - Afr Amer 116 mL/min (>60); Glucose 383 mg/dL (74-106); Potassium 4.7 mmol/L (3.5-5.1); Sodium Level 135 mmol/L (136-145)
[2023-11-07 14:14] LABS: Hemoglobin A1c 9.3 % (3.8-5.6)
== END | disposition home or self-care (01) ==
LOC: MFPLAB 10:11
PROVIDERS: PCP Family Medicine; Visit Provider Family Medicine
DX: E11.9 Type 2 diabetes mellitus without complications (principal)
CPT/HCPCS: 36415; 80048; 83036

== ENCOUNTER → 2024-09-26 | Outpatient (CLI) | payer SELFPAY ==
[2024-09-26 17:59] LABS: Anion Gap 4 (5-15); BUN 10 mg/dL (7-18); BUN/Creat Ratio 14.4 RATIO (10-20); Calcium,Total 9.5 mg/dL (8.5-10.1); Chloride 105 mmol/L (98-107); Cholesterol 135 mg/dL (200); EST Glomerular Filtration Rate 127 mL/min (>60); Est Glom Filt Rate - Afr Amer 153 mL/min (>60); Glucose 149 mg/dL (74-106); High Density Lipoprotein 35 mg/dL; Potassium 4.3 mmol/L (3.5-5.1); Sodium Level 136 mmol/L (136-145); Triglycerides 306 mg/dL; Very Low Density Lipoprotein 61 mg/dL (5-40)
== END | disposition home or self-care (01) ==
LOC: MFPLAB 15:56
PROVIDERS: PCP Family Medicine; Visit Provider Family Medicine
DX: E11.9 Type 2 diabetes mellitus without complications (principal)
CPT/HCPCS: 36415; 80048; 80061